=== PATIENT | female | born 1965 | race Caucasian/White ===

== ENCOUNTER 2016-10-18 14:35 | Observation (INO) | payer MEDICAID ==
[2016-10-18] MEDS ORDERED: Sodium Chloride 0.9% 2.5 ML Syringe FLUSH PRN ×2 (14:47)
[2016-10-18] MEDS ORDERED: Aspirin 81 MG Tab.Chew PO ONE (14:47)
[2016-10-18] MEDS ORDERED: Nitroglycerin 0.4 MG Tab.SL SL ONE (14:47)
[2016-10-18] MEDS ORDERED: Sodium Chloride 0.9% 10 ML Syringe FLUSH PRN (14:47)
--- NOTE | 2016-10-18 14:53 | EDM.PDOC ---
ED HPI GENERAL MEDICAL PROBLEM - General Stated Complaint: CHEST PAIN Time Seen by Provider: 10/18/16 14:35 - History of Present Illness INITIAL COMMENTS - FREE TEXT/NARRATIVE: HISTORY AND PHYSICAL: History of present illness: The patient is a 51-year-old female with a history of hypertension who presents today with gradual onset of midsternal and left chest pressure that had worsened and she came for evaluation. The patient states that the discomfort started about 11 AM and it is gradually worsened in intensity and then lessened in intensity. At its highest it was an 8/10 and currently it is a 6/10. The patient states that she had a normal morning and was doing normal activities when the discomfort started and she says that the discomfort is to the left of the mid chest and does not radiate and is associated with some nausea and shortness of breath but not diaphoresis. The patient denies any recent upper respiratory symptoms fevers or chills and has had no trauma. She currently denies any abdominal pain nausea back pain or extremity complaints. 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 The patient says that she took her normal blood pressure medications this morning and when the discomfort started she thought her blood pressure was elevated so she took one extra dose. The patient states that she smokes cigarettes and only occasionally drinks and has no history of drug use. The patient says that both her father and her half-brother had heart attacks and heart disease in the low 50s. She has never had any cardiac or pulmonary problems. She does have a history of a gastric bypass. The patient did not take any baby aspirin prying to coming here. Patient states that the only prior time she has ever had something like this was years ago when she had heat exhaustion. The patient says that she has just recently relocated here and does not have a provider. Review of systems: As per history of present illness and below otherwise all systems reviewed and negative. Past medical history: As per history of present illness and as reviewed below otherwise noncontributory. Surgical history: As per history of present illness and as reviewed below otherwise noncontributory. Social history: No reported history of drug or alcohol abuse. Family history: As per history of present illness and as reviewed below otherwise noncontributory. Physical exam: Gen.: Well-developed well-nourished female who is nontoxic and speaking clearly in the ED. Vital signs of a note by me. HEENT: Atraumatic, normocephalic, pupils reactive, negative for conjunctival pallor or scleral icterus, mucous membranes moist, throat clear, neck supple, nontender, trachea midline. Lungs: Clear to auscultation, breath sounds equal bilaterally, chest nontender. Heart: S1S2, regular, negative for clicks, rubs, or JVD. Abdomen: Soft, nondistended, nontender. Negative for masses or hepatosplenomegaly. Negative for costovertebral tenderness. Pelvis: Stable nontender. Genitourinary: Deferred. Rectal: Deferred. Extremities: Atraumatic, negative for cords or calf pain. Neurovascular unremarkable. No pedal edema or leg asymmetry Neuro: Awake, alert, oriented. Cranial nerves II through XII unremarkable. Cerebellum unremarkable. Motor and sensory unremarkable throughout. Exam nonfocal. Diagnostics: EKG CBC CMP troponin INR chest x-ray d-dimer Therapeutics: IV O2 monitor aspirin sublingual nitroglycerin and Nitropaste 1545: Dr. Arora was in the ER seen of the patient and also saw this patient. We'll plan on observation admission if the CTA of the chest is negative. After 3 separate little nitroglycerin the patient's pain is a 1-2. [address] Nitropaste. Patient is agreeable to this observation admission Impression: Chest pain rule out ACS Definitive disposition and diagnosis as appropriate pending reevaluation and review of above. chest Pain Score (Numeric/FACES): 6 - Related Data Allergies Allergy/AdvReac Type Severity Reaction Status Date / Time codeine Allergy Hallucinati Verified 10/18/16 14:52 ons lamotrigine [From Lamictal] Allergy Hives Verified 10/18/16 14:52 propofol Allergy Vomiting Verified 10/18/16 14:52 Home Meds: Home Meds FLUoxetine [PROzac] 40 mg PO BEDTIME 10/18/16 [History] Gabapentin [Neurontin] 100 mg PO BEDTIME 10/18/16 [History] Iron 0 mg PO DAILY 10/18/16 [History] Losartan [Cozaar] 50 mg PO DAILY 10/18/16 [History] Meloxicam 15 mg PO DAILY 10/18/16 [History] Metoprolol Succinate [Toprol XL] 100 mg PO DAILY 10/18/16 [History] Omeprazole 40 mg PO DAILY 10/18/16 [History] QUEtiapine Fumarate [Seroquel] 200 mg PO BEDTIME 10/18/16 [History] ED ROS GENERAL - Review of Systems Review Of Systems: ROS reveals no pertinent complaints other than HPI. ED EXAM, GENERAL - Physical Exam Exam: See Below (see dictation) Course - Vital Signs Last Recorded V/S: Last Vital Signs Temp 36.3 C 10/18/16 14:53 Pulse 77 10/18/16 14:53 Resp 11 L 10/18/16 17:00 BP 158/86 H 10/18/16 17:00 Pulse Ox 97 10/18/16 17:00 - Orders/Labs/Meds Orders: Active Orders 24 hr Category Date Time Status Patient Status [ADT] Routine ADT 10/18/16 16:34 Active Cardiac Monitoring [RC] . DIRECTED Care 10/18/16 14:47 Active EKG Documentation Completion [RC] STAT Care 10/18/16 14:48 Active Oxygen Therapy [RC] ASDIRECTED Care 10/18/16 14:47 Active Oxygen Therapy [RC] PRN Care 10/18/16 16:34 Active Pulse Oximetry [RC] ASDIRECTED Care 10/18/16 14:47 Active Up ad Quiana [RC] ASDIRECTED Care 10/18/16 16:34 Active VTE/DVT Education [RC] PER UNIT ROUTINE Care 10/18/16 16:34 Active Vital Signs [RC] Q4H Care 10/18/16 16:34 Active Regular Diet [DIET] Diet 10/18/16 Dinner Active Ang Chest [CT] Stat Exams 10/18/16 15:33 Taken MAGNESIUM [CHEM] AM Lab 10/19/16 05:11 Ordered TROPONIN I [CHEM] Q6H Lab 10/18/16 21:00 Ordered TROPONIN I [CHEM] Q6H Lab 10/19/16 03:00 Ordered TROPONIN I [CHEM] Q6H Lab 10/19/16 09:00 Ordered Acetaminophen [Tylenol] Med 10/18/16 16:34 Active 650 mg PO Q4H PRN Aspirin Med 10/19/16 09:00 Active 81 mg PO DAILY Enoxaparin [Lovenox] Med 10/19/16 18:00 Active 40 mg SUBCUT DAILY FLUoxetine [PROzac] Med 10/18/16 21:00 Active 40 mg PO BEDTIME Gabapentin [Neurontin] Med 10/18/16 21:00 Active 100 mg PO BEDTIME Losartan [Cozaar] Med 10/19/16 09:00 Active 50 mg PO DAILY Metoprolol Succinate [Toprol XL] Med 10/19/16 09:00 Active 100 mg PO DAILY Omeprazole Med 10/19/16 09:00 Active 40 mg PO DAILY QUEtiapine [SEROquel] Med 10/18/16 21:00 Active 200 mg PO BEDTIME Sodium Chloride 0.9% [Saline Flush] Med 10/18/16 14:47 Active 10 ml FLUSH ASDIRECTED PRN Sodium Chloride 0.9% [Saline Flush] Med 10/18/16 14:47 Active 2.5 ml FLUSH ASDIRECTED PRN Sodium Chloride 0.9% [Saline Flush] Med 10/18/16 14:47 Active 2.5 ml FLUSH ASDIRECTED PRN Temazepam [Restoril] Med 10/18/16 16:34 Active 15 mg PO BEDTIME PRN Saline Lock Insert [OM.PC] Stat Oth 10/18/16 14:47 Ordered Resuscitation Status Routine Resus Stat 10/18/16 16:34 Ordered Medication Orders Acetaminophen (Tylenol) 650 mg PO Q4H PRN PRN Reason: Pain (Mild 1-3)/fever Aspirin (Aspirin) 81 mg PO DAILY [facility] Enoxaparin Sodium (Lovenox) 40 mg SUBCUT DAILY [facility] Fluoxetine HCl (Prozac) 40 mg PO BEDTIME ELI Gabapentin (Neurontin) 100 mg PO BEDTIME ELI Losartan Potassium (Cozaar) 50 mg PO DAILY ELI Metoprolol Succinate (Toprol Xl) 100 mg PO DAILY ELI Omeprazole (Omeprazole) 40 mg PO DAILY ELI Quetiapine Fumarate (Seroquel) 200 mg PO BEDTIME ELI Sodium Chloride (Saline Flush) 2.5 ml FLUSH ASDIRECTED PRN PRN Reason: Keep Vein Open Sodium Chloride (Saline Flush) 10 ml FLUSH ASDIRECTED PRN PRN Reason: Keep Vein Open Sodium Chloride (Saline Flush) 2.5 ml FLUSH ASDIRECTED PRN PRN Reason: Keep Vein Open Temazepam (Restoril) 15 mg PO BEDTIME PRN PRN Reason: Sleep Labs: Laboratory Tests 10/18/16 10/18/16 10/18/16 Range/Units 14:38 14:38 14:38 WBC 10.55 (4.0-11.0) K/uL RBC 4.54 (4.30-5.90) M/uL Hgb 14.4 (12.0-16.0) g/dL Hct 43.8 (36.0-46.0) % MCV 96.5 (80.0-98.0) fL MCH 31.7 (27.0-32.0) pg MCHC 32.9 (31.0-37.0) g/dL RDW Std Deviation 46.9 (28.0-62.0) fl RDW Coeff of Stephani 13 (11.0-15.0) % Plt Count 296 (150-400) K/uL MPV 9.50 (7.40-12.00) fL Neut % (Auto) 61.5 (48.0-80.0) % Lymph % (Auto) 27.6 (16.0-40.0) % [place] % (Auto) 9.2 (0.0-15.0) % Eos % (Auto) 0.9 (0.0-7.0) % Baso % (Auto) 0.8 (0.0-1.5) % Neut # (Auto) 6.5 H (1.4-5.7) K/uL Lymph # (Auto) 2.9 H (0.6-2.4) K/uL [place] # (Auto) 1.0 H (0.0-0.8) K/uL Eos # (Auto) 0.1 (0.0-0.7) K/uL Baso # (Auto) 0.1 (0.0-0.1) K/uL Nucleated RBC % 0.0 /100WBC Nucleated RBCs # 0 K/uL INR 0.91 (0.86-1.11) D-Dimer, Quantitative 0.79 H (0.0-0.52) mg/LFEU Sodium 135 L (136-146) mmol/L Potassium 4.6 (3.5-5.1) mmol/L Chloride 101 (98-110) mmol/L Carbon Dioxide 23 (21-31) mmol/L BUN 16 (6.0-23.0) mg/dL Creatinine 1.0 (0.6-1.5) mg/dL Est Cr Clr Drug Dosing TNP Estimated GFR (MDRD) 58.0 ml/min Glucose 95 (60-110) mg/dL Calcium 8.9 (8.8-10.8) mg/dL Total Bilirubin 0.6 (0.1-1.5) mg/dL AST 57 H (5-40) IU/L ALT 46 (8-54) IU/L Alkaline Phosphatase 133 (40-150) Troponin I (0.0-0.29) NG/ML Total Protein 7.8 (6.0-8.0) g/dL Albumin 4.3 (3.5-5.0) g/dL Globulin 3.5 (2.0-3.5) g/dL Albumin/Globulin Ratio 1.2 L (1.3-2.8) 10/18/16 Range/Units 14:38 WBC (4.0-11.0) K/uL RBC (4.30-5.90) M/uL Hgb (12.0-16.0) g/dL Hct (36.0-46.0) % MCV (80.0-98.0) fL MCH (27.0-32.0) pg MCHC (31.0-37.0) g/dL RDW Std Deviation (28.0-62.0) fl RDW Coeff of Stephani (11.0-15.0) % Plt Count (150-400) K/uL MPV (7.40-12.00) fL Neut % (Auto) (48.0-80.0) % Lymph % (Auto) (16.0-40.0) % [place] % (Auto) (0.0-15.0) % Eos % (Auto) (0.0-7.0) % Baso % (Auto) (0.0-1.5) % Neut # (Auto) (1.4-5.7) K/uL Lymph # (Auto) (0.6-2.4) K/uL [place] # (Auto) (0.0-0.8) K/uL Eos # (Auto) (0.0-0.7) K/uL Baso # (Auto) (0.0-0.1) K/uL Nucleated RBC % /100WBC Nucleated RBCs # K/uL INR (0.86-1.11) D-Dimer, Quantitative (0.0-0.52) mg/LFEU Sodium (136-146) mmol/L Potassium (3.5-5.1) mmol/L Chloride (98-110) mmol/L Carbon Dioxide (21-31) mmol/L BUN (6.0-23.0) mg/dL Creatinine (0.6-1.5) mg/dL Est Cr Clr Drug Dosing Estimated GFR (MDRD) ml/min Glucose (60-110) mg/dL Calcium (8.8-10.8) mg/dL Total Bilirubin (0.1-1.5) mg/dL AST (5-40) IU/L ALT (8-54) IU/L Alkaline Phosphatase (40-150) Troponin I < 0.10 (0.0-0.29) NG/ML Total Protein (6.0-8.0) g/dL Albumin (3.5-5.0) g/dL Globulin (2.0-3.5) g/dL Albumin/Globulin Ratio (1.3-2.8) Meds: Medications Generic Name Dose Route Start Last Admin Trade Name Freq PRN Reason Stop Dose Admin Acetaminophen 650 mg 10/18/16 16:34 Tylenol PO Q4H PRN Pain (Mild 1-3)/fever Aspirin 81 mg 10/19/16 09:00 Aspirin PO DAILY [facility] Enoxaparin Sodium 40 mg 10/19/16 18:00 Lovenox SUBCUT DAILY [facility] Fluoxetine HCl 40 mg 10/18/16 21:00 Prozac PO BEDTIME ELI Gabapentin 100 mg 10/18/16 21:00 Neurontin PO BEDTIME ELI Losartan Potassium 50 mg 10/19/16 09:00 Cozaar PO DAILY ELI Metoprolol Succinate 100 mg 10/19/16 09:00 Toprol Xl PO DAILY ELI Omeprazole 40 mg 10/19/16 09:00 Omeprazole PO DAILY ELI Quetiapine Fumarate 200 mg 10/18/16 21:00 Seroquel PO BEDTIME ELI Sodium Chloride 2.5 ml 10/18/16 14:47 Saline Flush FLUSH ASDIRECTED PRN Keep Vein Open Sodium Chloride 10 ml 10/18/16 14:47 Saline Flush FLUSH ASDIRECTED PRN Keep Vein Open Sodium Chloride 2.5 ml 10/18/16 14:47 Saline Flush FLUSH ASDIRECTED PRN Keep Vein Open Temazepam 15 mg 10/18/16 16:34 Restoril PO BEDTIME PRN Sleep Discontinued Medications Generic Name Dose Route Start Last Admin Trade Name Freq PRN Reason Stop Dose Admin Aspirin 324 mg 10/18/16 14:47 10/18/16 15:05 Aspirin PO 10/18/16 14:48 324 mg ONETIME ONE Administration Aspirin Confirm 10/18/16 15:09 10/18/16 15:21 Aspirin Administered 10/18/16 15:10 Not Given Dose 81 mg .ROUTE .STK-MED ONE Iopamidol 50 ml 10/18/16 16:35 10/18/16 16:36 Isovue Multipack-370 (76%) IVPUSH 10/18/16 16:36 50 ml ONETIME STA Administration Nitroglycerin 0.4 mg 10/18/16 14:47 10/18/16 15:21 Nitrostat SL 10/18/16 14:48 0.4 mg ONETIME ONE Administration Nitroglycerin 0.4 mg 10/18/16 15:45 10/18/16 16:51 Nitrostat SL 10/18/16 15:56 Not Given Q5M ELI Nitroglycerin 1 gm 10/18/16 16:04 10/18/16 16:57 Nitro-Bid 2% TOP 10/18/16 16:05 Not Given ONETIME ONE Nitroglycerin 0.5 gm 10/18/16 16:56 10/18/16 16:58 Nitro-Bid 2% TOP 10/18/16 16:57 0.5 gm ONETIME ONE Administration Departure - Departure Time of Disposition: 17:14 Disposition: Refer to Observation Condition: Good Clinical Impression: Acute coronary syndrome - Discharge Information - My Orders Last 24 Hours: My Active Orders 10/18/16 14:47 Cardiac Monitoring [RC] . DIRECTED Oxygen Therapy [RC] ASDIRECTED Pulse Oximetry [RC] ASDIRECTED Sodium Chloride 0.9% [Saline Flush] 10 ml FLUSH ASDIRECTED PRN Sodium Chloride 0.9% [Saline Flush] 2.5 ml FLUSH ASDIRECTED PRN Sodium Chloride 0.9% [Saline Flush] 2.5 ml FLUSH ASDIRECTED PRN Saline Lock Insert [OM.PC] Stat 10/18/16 14:48 EKG Documentation Completion [RC] STAT 10/18/16 15:33 Ang Chest [CT] Stat - Assessment/Plan Last 24 Hours: My Active Orders 10/18/16 14:47 Cardiac Monitoring [RC] . DIRECTED Oxygen Therapy [RC] ASDIRECTED Pulse Oximetry [RC] ASDIRECTED Sodium Chloride 0.9% [Saline Flush] 10 ml FLUSH ASDIRECTED PRN Sodium Chloride 0.9% [Saline Flush] 2.5 ml FLUSH ASDIRECTED PRN Sodium Chloride 0.9% [Saline Flush] 2.5 ml FLUSH ASDIRECTED PRN Saline Lock Insert [OM.PC] Stat 10/18/16 14:48 EKG Documentation Completion [RC] STAT 10/18/16 15:33 Ang Chest [CT] Stat
[2016-10-18] MEDS ORDERED: Aspirin 81 MG Tab.Chew ONE (15:09)
[2016-10-18 15:23] LABS: CHLORIDE,CL 101 mmol/L (98-110); SODIUM,NA 135 mmol/L (136-146)
[2016-10-18] MEDS: Nitroglycerin 0.4 MG Tab.SL SL SCH ×3 (15:33→16:51)
[2016-10-18] MEDS ORDERED: Nitroglycerin 2% Oint 1 GM UD Packet TOP ONE ×2 (16:04→16:56)
--- NOTE | 2016-10-18 16:33 | PCM.HP ---
H&P History of Present Illness - General Date of Service: 10/18/16 Source of Information: Patient, Provider - History of Present Illness Initial Comments - Free Text/Narative: she presents with left precordial pain. She was seen in the ED. EKG and troponin were normal. Her pain is improved with nitroglycerin. She smokes and has a family history of premature CAD with her brother suffering an OR. chest Pain Score (Numeric/FACES): 6 - Related Data Allergies/Adverse Reactions: Allergies Allergy/AdvReac Type Severity Reaction Status Date / Time codeine Allergy Hallucinati Verified 10/18/16 14:52 ons lamotrigine [From Lamictal] Allergy Hives Verified 10/18/16 14:52 propofol Allergy Vomiting Verified 10/18/16 14:52 Home Medications: Home Meds FLUoxetine [PROzac] 40 mg PO BEDTIME 10/18/16 [History] Gabapentin [Neurontin] 100 mg PO BEDTIME 10/18/16 [History] Iron 0 mg PO DAILY 10/18/16 [History] Losartan [Cozaar] 50 mg PO DAILY 10/18/16 [History] Meloxicam 15 mg PO DAILY 10/18/16 [History] Metoprolol Succinate [Toprol XL] 100 mg PO DAILY 10/18/16 [History] Omeprazole 40 mg PO DAILY 10/18/16 [History] QUEtiapine Fumarate [Seroquel] 200 mg PO BEDTIME 10/18/16 [History] Past Medical History - Past Health History Medical/Surgical History: Denies Medical/Surgical History Cardiovascular History: Reports: Hypertension. Denies: CAD, Heart Failure, Heart Murmur Respiratory History: Reports: Pneumonia, Recurrent. 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: Musculoskeletal History: Reports: Arthritis Neurological History: Denies: Alzheimers Disease, CVA, Seizure Psychiatric History: Reports: Bipolar, Depression Endocrine/Metabolic History: Denies: [place]'s Disease, [place]'s Disease, Diabetes, Type II Hematologic History: Denies: Anticoagulation Therapy Immunologic History: Denies: AIDS, HIV, Immunosuppression, Solid Organ Transplant Oncologic (Cancer) History: Reports: None - Past Surgical History GI Surgical History: Reports: Other (See Below) Other GI Surgeries/Procedures: gastric bypass Female Surgical History: Reports: Section Other Female Surgeries/Procedures: breast reduction Social & Family History - Family History Family Medical History: Noncontributory Neurological: Reports: CVA Other Neurological Family History: father- - Tobacco Use Smoking Status *Q: Current Every Day Smoker Years of Tobacco use: 40 Packs/Tins Daily: 1 - Caffeine Use Caffeine Use: Reports: Coffee Caffeine Use Comment: 1 cup daily - Alcohol Use Alcohol Use History: Yes Days Per Week of Alcohol Use: 4 Number of Drinks Per Day: 3 (drinks red wine) Total Drinks Per Week: 12 - Recreational Drug Use Recreational Drug Use: No H&P Review of Systems - Review of Systems: Review Of Systems: See Below General: Denies: Fever, Chills Pulmonary: Denies: Shortness of Breath, Cough, Sputum, Hemoptysis Cardiovascular: Reports: Chest Pain Gastrointestinal: Denies: Abdominal Pain, Anorexia, Black Stool, Difficulty Swallowing, Hematemesis, Hematochezia, Nausea Genitourinary: Denies: Dysuria, Frequency, Hematuria Skin: Denies: Cyanosis Psychiatric: Denies: Confusion Exam - Exam Exam: See Below - Vital Signs Vital Signs: Last Vital Signs Temp 97.4 F 10/18/16 14:53 Pulse 77 10/18/16 14:53 Resp 13 10/18/16 15:25 BP 142/90 H 10/18/16 15:40 Pulse Ox 94 L 10/18/16 15:25 Weight: 86.3 kg - Exam General: Alert, Oriented, Cooperative HEENT: Conjunctiva Clear, EOMI Neck: Supple, Trachea Midline Lungs: Clear to Auscultation, Normal Respiratory Effort Cardiovascular: Regular Rate, Regular Rhythm Abdomen: Soft. No: Distention, Tenderness (Female) Exam: Deferred Rectal (Female) Exam: Deferred Extremities: No: Edema Neurological: Cranial Nerves Intact Neuro Extensive - Mental Status: Alert, Oriented x3, Normal Mood/Affect, Normal Cognition Neuro Extensive - Motor, Sensory, Reflexes: No: Facial palsy (L), Facial Palsy ( R), Hemeplagia (R), Hemeplagia (L) Psychiatric: Alert. No: Agitated - Patient Data Lab Results Last 24 hrs: Laboratory Results - last 24 hr 06/23/17 06/23/17 06/23/17 Range/Units 14:38 14:38 14:38 WBC 10.55 (4.0-11.0) K/uL RBC 4.54 (4.30-5.90) M/uL Hgb 14.4 (12.0-16.0) g/dL Hct 43.8 (36.0-46.0) % MCV 96.5 (80.0-98.0) fL MCH 31.7 (27.0-32.0) pg MCHC 32.9 (31.0-37.0) g/dL RDW Std Deviation 46.9 (28.0-62.0) fl RDW Coeff of Stephani 13 (11.0-15.0) % Plt Count 296 (150-400) K/uL MPV 9.50 (7.40-12.00) fL Neut % (Auto) 61.5 (48.0-80.0) % Lymph % (Auto) 27.6 (16.0-40.0) % [place] % (Auto) 9.2 (0.0-15.0) % Eos % (Auto) 0.9 (0.0-7.0) % Baso % (Auto) 0.8 (0.0-1.5) % Neut # (Auto) 6.5 H (1.4-5.7) K/uL Lymph # (Auto) 2.9 H (0.6-2.4) K/uL [place] # (Auto) 1.0 H (0.0-0.8) K/uL Eos # (Auto) 0.1 (0.0-0.7) K/uL Baso # (Auto) 0.1 (0.0-0.1) K/uL Nucleated RBC % 0.0 /100WBC Nucleated RBCs # 0 K/uL INR 0.91 (0.86-1.11) D-Dimer, Quantitative 0.79 H (0.0-0.52) mg/LFEU Sodium 135 L (136-146) mmol/L Potassium 4.6 (3.5-5.1) mmol/L Chloride 101 (98-110) mmol/L Carbon Dioxide 23 (21-31) mmol/L BUN 16 (6.0-23.0) mg/dL Creatinine 1.0 (0.6-1.5) mg/dL Est Cr Clr Drug Dosing TNP Estimated GFR (MDRD) 58.0 ml/min Glucose 95 (60-110) mg/dL Calcium 8.9 (8.8-10.8) mg/dL Total Bilirubin 0.6 (0.1-1.5) mg/dL AST 57 H (5-40) IU/L ALT 46 (8-54) IU/L Alkaline Phosphatase 133 (40-150) Troponin I (0.0-0.29) NG/ML Total Protein 7.8 (6.0-8.0) g/dL Albumin 4.3 (3.5-5.0) g/dL Globulin 3.5 (2.0-3.5) g/dL Albumin/Globulin Ratio 1.2 L (1.3-2.8) 10/18/16 Range/Units 14:38 WBC (4.0-11.0) K/uL RBC (4.30-5.90) M/uL Hgb (12.0-16.0) g/dL Hct (36.0-46.0) % MCV (80.0-98.0) fL MCH (27.0-32.0) pg MCHC (31.0-37.0) g/dL RDW Std Deviation (28.0-62.0) fl RDW Coeff of Stephani (11.0-15.0) % Plt Count (150-400) K/uL MPV (7.40-12.00) fL Neut % (Auto) (48.0-80.0) % Lymph % (Auto) (16.0-40.0) % [place] % (Auto) (0.0-15.0) % Eos % (Auto) (0.0-7.0) % Baso % (Auto) (0.0-1.5) % Neut # (Auto) (1.4-5.7) K/uL Lymph # (Auto) (0.6-2.4) K/uL [place] # (Auto) (0.0-0.8) K/uL Eos # (Auto) (0.0-0.7) K/uL Baso # (Auto) (0.0-0.1) K/uL Nucleated RBC % /100WBC Nucleated RBCs # K/uL INR (0.86-1.11) D-Dimer, Quantitative (0.0-0.52) mg/LFEU Sodium (136-146) mmol/L Potassium (3.5-5.1) mmol/L Chloride (98-110) mmol/L Carbon Dioxide (21-31) mmol/L BUN (6.0-23.0) mg/dL Creatinine (0.6-1.5) mg/dL Est Cr Clr Drug Dosing Estimated GFR (MDRD) ml/min Glucose (60-110) mg/dL Calcium (8.8-10.8) mg/dL Total Bilirubin (0.1-1.5) mg/dL AST (5-40) IU/L ALT (8-54) IU/L Alkaline Phosphatase (40-150) Troponin I < 0.10 (0.0-0.29) NG/ML Total Protein (6.0-8.0) g/dL Albumin (3.5-5.0) g/dL Globulin (2.0-3.5) g/dL Albumin/Globulin Ratio (1.3-2.8) Result Diagrams: 10/18/16 14:38 10/18/16 14:38 John Results Last 24 hrs: EKG: NSR *Q Meaningful Use (ADM) - VTE *Q VTE Criteria *Q: - Stroke *Q Stroke Criteria *Q: - AMI *Q AMI Criteria *Q: Problem List Initiated/Reviewed/Updated: Yes Orders Last 24hrs: Active Orders 24 hr Category Date Time Status Cardiac Monitoring [RC] . DIRECTED Care 10/18/16 14:47 Active EKG Documentation Completion [RC] STAT Care 10/18/16 14:48 Active Oxygen Therapy [RC] ASDIRECTED Care 10/18/16 14:47 Active Pulse Oximetry [RC] ASDIRECTED Care 10/18/16 14:47 Active Ang Chest [CT] Stat Exams 10/18/16 15:33 Ordered Chest 1V Frontal [CR] Stat Exams 10/18/16 14:47 Taken Sodium Chloride 0.9% [Saline Flush] Med 10/18/16 14:47 Active 10 ml FLUSH ASDIRECTED PRN Sodium Chloride 0.9% [Saline Flush] Med 10/18/16 14:47 Active 2.5 ml FLUSH ASDIRECTED PRN Sodium Chloride 0.9% [Saline Flush] Med 10/18/16 14:47 Active 2.5 ml FLUSH ASDIRECTED PRN Saline Lock Insert [OM.PC] Stat Oth 10/18/16 14:47 Ordered Medication Orders Sodium Chloride (Saline Flush) 2.5 ml FLUSH ASDIRECTED PRN PRN Reason: Keep Vein Open Sodium Chloride (Saline Flush) 10 ml FLUSH ASDIRECTED PRN PRN Reason: Keep Vein Open Sodium Chloride (Saline Flush) 2.5 ml FLUSH ASDIRECTED PRN PRN Reason: Keep Vein Open Assessment/Plan Comment:: observation see orders CTA chest pending
[2016-10-18] MEDS ORDERED: Temazepam 15 MG Cap PO PRN (16:34)
[2016-10-18] MEDS ORDERED: Iopamidol 755 MG/ML 500 ML Multipack Bottle IVPUSH STA (16:35)
--- NOTE | 2016-10-18 17:11 | CR ---
EXAM DATE: 10/18/16 PATIENT'S AGE: 51 Patient: FILOMENA VENCES Facility: [place], [place] Site . Site : [id number] Study: XRay Chest [id number] 3:07:49 PM Ordering Physician: Melisa Clark Final Report: HISTORY: Chest pain. FINDINGS: AP portable chest radiograph demonstrates EKG leads overlie the thorax. The cardiac silhouette is normal size. Pulmonary vasculature is free of cephalization. There is some linear density in the left mid lung. No consolidation or pleural effusion is seen. IMPRESSION: 1. Linear atelectasis or scarring in the left mid lung. 2. Otherwise, no acute cardiopulmonary disease. Dictated by Noni Monte MD @ 10/18/2016 3:11:17 PM Dictated by: Noni Monte MD @ 10/18/2016 15:11:24 (Electronic Signature) Report Signed by Proxy. KEITH
[2016-10-18] MEDS: Acetaminophen 325 MG Tab PO PRN (20:04)
[2016-10-18] MEDS: FLUoxetine 20 MG Cap PO SCH ×2 (20:05→20:09)
[2016-10-18] MEDS ORDERED: QUEtiapine 100 MG Tab PO SCH (21:00)
[2016-10-18] MEDS ORDERED: Gabapentin 100 MG Cap PO SCH (21:00)
[2016-10-18] MEDS: Nitroglycerin 2% Oint 1 GM UD Packet TOP SCH (23:09)
[2016-10-19] MEDS: Acetaminophen 325 MG Tab PO PRN ×2 (02:33→11:58)
[2016-10-19] MEDS: Nitroglycerin 2% Oint 1 GM UD Packet TOP SCH ×2 (05:01→10:38)
[2016-10-19] MEDS ORDERED: Metoprolol Succinate 100 MG Tab.ER PO SCH (09:00)
[2016-10-19] MEDS ORDERED: FLUoxetine 20 MG Cap PO SCH (09:00)
[2016-10-19] MEDS ORDERED: Aspirin 81 MG Tab.Chew PO SCH (09:00)
[2016-10-19] MEDS ORDERED: Losartan 50 MG Tab PO SCH (09:00)
[2016-10-19] MEDS ORDERED: Omeprazole 20 MG Cap.CR PO SCH (09:00)
[2016-10-19 16:00] VITALS: BP 146/97
--- NOTE | 2016-10-19 16:26 | PCM.DCSUM1 ---
Discharge Summary - Hospital Course Brief History: she was admitted with left precordial chest pain - Discharge Data Discharge Date: 10/19/16 Discharge Disposition: Home, Self-Care 01 Condition: Good - Patient Summary/Data Hospital Course: EKG showed no evidence of ischemia. Pain improved with nitroglycerin . serial troponins are negative. She is pain free at discharge. Arrangements are being made for outpatient stress test this coming week. She is to follow up promptly if symptoms return she is advised to take aspirin 81 mg daily no strenuous activity until after stress test is done she is prescribed anusol suppositories at discharge for reported hemorrhoids. - Discharge Plan Prescriptions/Med Rec: Aspirin 81 mg PO DAILY #100 tab.chew Hydrocortisone [Anusol-HC] 2 gm RC QID PRN #30 cream..g. PRN Reason: Other Nitroglycerin [Nitrostat] 0.4 mg SL Q5M #10 tab.sl Home Medications: Home Meds FLUoxetine [PROzac] 40 mg PO BEDTIME 10/18/16 [History] Gabapentin [Neurontin] 100 mg PO BEDTIME 10/18/16 [History] Iron,Carbonyl/Ascorbic Acid [Vitron-C Tablet] 1 each PO DAILY 10/18/16 [History] Losartan [Cozaar] 50 mg PO DAILY 10/18/16 [History] Meloxicam 15 mg PO DAILY 10/18/16 [History] Metoprolol Succinate [Toprol XL] 100 mg PO DAILY 10/18/16 [History] Omeprazole 40 mg PO DAILY 10/18/16 [History] QUEtiapine Fumarate [Seroquel] 200 mg PO BEDTIME 10/18/16 [History] Aspirin 81 mg PO DAILY #100 tab.chew 10/19/16 [Rx] Hydrocortisone [Anusol-HC] 2 gm RC QID PRN #30 cream..g. 10/19/16 [Rx] Nitroglycerin [Nitrostat] 0.4 mg SL Q5M #10 tab.sl 10/19/16 [Rx] Patient Handouts: Nonspecific Chest Pain, [id number], Nitroglycerin sublingual tablets - Patient Data Vitals - Most Recent: Last Vital Signs Temp 97 F 10/19/16 15:59 Pulse 69 10/19/16 15:59 Resp 18 10/19/16 15:59 BP 146/97 H 10/19/16 15:59 Pulse Ox 98 10/19/16 15:59 Weight - Most Recent: 87.5 kg I&O - Last 24 hours: Intake & Output 10/19/16 10/19/16 10/19/16 06:59 14:59 22:59 Intake Total 1280 350 Output Total 700 800 Balance 580 -450 Lab Results - Last 24 hrs: Laboratory Results - last 24 hr 10/18/16 10/19/16 10/19/16 Range/Units 21:06 03:05 03:05 Magnesium 1.6 (1.5-2.3) mEq/L Troponin I < 0.10 < 0.10 (0.0-0.29) NG/ML 10/19/16 Range/Units 09:00 Magnesium (1.5-2.3) mEq/L Troponin I < 0.10 (0.0-0.29) NG/ML Med Orders - Current: Current Medications Acetaminophen (Tylenol) 650 mg PO Q4H PRN PRN Reason: Pain (Mild 1-3)/fever Last Admin: 10/19/16 11:58 Dose: 650 mg Aspirin (Aspirin) 81 mg PO DAILY [facility] Last Admin: 10/19/16 08:08 Dose: 81 mg Enoxaparin Sodium (Lovenox) 40 mg SUBCUT DAILY [facility] Fluoxetine HCl (Prozac) 40 mg PO DAILY [facility] Last Admin: 10/19/16 08:09 Dose: 40 mg Gabapentin (Neurontin) 100 mg PO BEDTIME [facility] Last Admin: 10/18/16 20:05 Dose: 100 mg Losartan Potassium (Cozaar) 50 mg PO DAILY [facility] Last Admin: 10/19/16 08:08 Dose: 50 mg Metoprolol Succinate (Toprol Xl) 100 mg PO DAILY [facility] Last Admin: 10/19/16 08:08 Dose: 100 mg Omeprazole (Omeprazole) 40 mg PO DAILY [facility] Last Admin: 10/19/16 08:08 Dose: 40 mg Quetiapine Fumarate (Seroquel) 200 mg PO BEDTIME [facility] Last Admin: 10/18/16 20:04 Dose: 200 mg Sodium Chloride (Saline Flush) 2.5 ml FLUSH ASDIRECTED PRN PRN Reason: Keep Vein Open Sodium Chloride (Saline Flush) 10 ml FLUSH ASDIRECTED PRN PRN Reason: Keep Vein Open Sodium Chloride (Saline Flush) 2.5 ml FLUSH ASDIRECTED PRN PRN Reason: Keep Vein Open Temazepam (Restoril) 15 mg PO BEDTIME PRN PRN Reason: Sleep Discontinued Medications Aspirin (Aspirin) 324 mg PO ONETIME ONE Stop: 10/18/16 14:48 Last Admin: 10/18/16 15:05 Dose: 324 mg Aspirin (Aspirin) Confirm Administered Dose 81 mg .ROUTE .STK-MED ONE Stop: 10/18/16 15:10 Last Admin: 10/18/16 15:21 Dose: Not Given Fluoxetine HCl (Prozac) 40 mg PO BEDTIME ELI Last Admin: 10/18/16 20:09 Dose: Not Given Iopamidol (Isovue Multipack-370 (76%)) 50 ml IVPUSH ONETIME STA Stop: 10/18/16 16:36 Last Admin: 10/18/16 16:36 Dose: 50 ml Nitroglycerin (Nitrostat) 0.4 mg SL ONETIME ONE Stop: 10/18/16 14:48 Last Admin: 10/18/16 15:21 Dose: 0.4 mg Nitroglycerin (Nitrostat) 0.4 mg SL Q5M ELI Stop: 10/18/16 15:56 Last Admin: 10/18/16 16:51 Dose: Not Given Nitroglycerin (Nitro-Bid 2%) 1 gm TOP ONETIME ONE Stop: 10/18/16 16:05 Last Admin: 10/18/16 16:57 Dose: Not Given Nitroglycerin (Nitro-Bid 2%) 0.5 gm TOP ONETIME ONE Stop: 10/18/16 16:57 Last Admin: 10/18/16 16:58 Dose: 0.5 gm Nitroglycerin (Nitro-Bid 2%) 1 gm TOP Q6H ELI Last Admin: 10/19/16 10:38 Dose: 1 gm *Q Meaningful Use (DIS) - VTE *Q VTE Criteria *Q: - Stroke *Q Stroke Criteria *Q: - AMI *Q AMI Criteria *Q:
[2016-10-19] MEDS ORDERED: Enoxaparin 40 MG/0.4 ML Syringe SUBCUT SCH (18:00)
--- NOTE | 2016-10-21 09:55 | CT ---
EXAM DATE: 10/18/16 PATIENT'S AGE: 51 Patient: FILOMENA VENCES Facility: [place], [place] Site . Site : [id number] Study: CT Chest Angio [id number] 4:40:22 PM Ordering Physician: Melisa Clark Final Report: HISTORY: Elevated D-dimer, left chest pain. TECHNIQUE: The chest was scanned using helical technique at 1 mm after 50 cc of Isovue- 370. Sagittal and coronal reconstructions were performed. FINDINGS: Mediastinum and hilar: Thyroid is unremarkable. No pathologic mediastinal or hilar adenopathy seen. Cardiovascular structures: The thoracic aorta is normal in caliber. The bolus to the pulmonary arteries is excellent. No pulmonary embolus is identified. Heart size is at the upper limits of normal. No pericardial effusion is seen. Lungs and pleura: There band atelectatic lung present in the anterior aspect of the right lower lobe. 11 mm pulmonary nodule is seen the right lower lobe on image [id number]. There are a few small satellite nodules measuring 4 mm or less. There is a band of atelectasis or scarring in the lingula. Chest wall: No pathologic axillary lymphadenopathy. No chest wall mass. Upper abdomen: Postoperative changes on the stomach suggesting gastric bypass. The visualized liver is size homogeneous. The spleen is normal in size. Osseous structures: There is patchy sclerosis seen lateral aspect of the left 5th rib. It is seen within the thoracic spine. IMPRESSION: 1. No pulmonary embolus is identified. 2. Thoracic aorta is free of aneurysm or dissection. 3. 11 mm pulmonary nodule in the right lower lobe with a few satellite nodules. Further evaluation with PET-CT imaging, followup exam in 3 months or tissue sampling should be considered. 4. Is a band of atelectasis or scarring seen within the right lower lobe and lingula. 5. Postoperative changes of the stomach most consistent with gastric bypass. 6. Patchy sclerosis in the lateral aspect left 5th rib. This is nonspecific in appearance. No other bony lesions are identified. Dictated by Noni Monte MD @ 10/18/2016 5:11:50 PM Dictated by: Noni Monte MD @ 10/18/2016 17:12:11 (Electronic Signature) Report Signed by Proxy. [facility] CENTERHiren
== END 2016-10-19 16:51 | disposition home or self-care (01) ==
LOC: MW.ED 14:35 → MW.ICU 17:30
PROVIDERS: ADMIT Family Medicine; ATTEND Family Medicine
DX: R07.2 Precordial pain (principal); I10 Essential (primary) hypertension; F31.9 Bipolar disorder, unspecified; F17.210 Nicotine dependence, cigarettes, uncomplicated; M19.90 Unspecified osteoarthritis, unspecified site; Z82.49 Family history of ischemic heart disease and other diseases of the circulatory system; Z87.01 Personal history of pneumonia (recurrent); Z98.84 Bariatric surgery status; Z98.890 Other specified postprocedural states; Z79.899 Other long term (current) drug therapy; Z88.5 Allergy status to narcotic agent; Z88.8 Allergy status to other drugs, medicaments and biological substances
CPT/HCPCS: 36415; 71010; 71010-26; 71275; 71275-26; 80053; 83735; 84484; 85025; 85379; 85610; 93005; 99285; 99285-25; A9270-GY; G0378; Q9967

== ENCOUNTER 2018-11-04 09:16 | Emergency (ER) | payer BC, MEDICAID ==
[2018-11-04] MEDS ORDERED: Cyclobenzaprine 10 MG Tab PO ONE (09:43)
[2018-11-04] MEDS ORDERED: Sodium Chloride 0.9% 10 ML Syringe FLUSH PRN (09:44)
[2018-11-04] MEDS ORDERED: Sodium Chloride 0.9% 2.5 ML Syringe FLUSH PRN (09:44)
[2018-11-04] MEDS ORDERED: Morphine 2 MG/ML Syringe IVPUSH ONE (09:45)
--- NOTE | 2018-11-04 09:56 | EDM.PDOC ---
<Hilda Hernandez - Last Filed: 11/04/18 11:02> ED HPI GENERAL MEDICAL PROBLEM - General Chief Complaint: Lower Extremity Injury/Pain Stated Complaint: LEFT HIP PAIN Time Seen by Provider: 11/04/18 09:56 - Related Data Allergies Allergy/AdvReac Type Severity Reaction Status Date / Time codeine Allergy Hallucinati Verified 11/04/18 09:24 ons lamotrigine [From Lamictal] Allergy Hives Verified 11/04/18 09:24 propofol Allergy Vomiting Verified 11/04/18 09:24 Home Meds: Home Meds FLUoxetine [PROzac] 40 mg PO BEDTIME 10/18/16 [History] Gabapentin [Neurontin] 600 mg PO TID 10/18/16 [History] Losartan [Cozaar] 50 mg PO BID 10/18/16 [History] Meloxicam 15 mg PO DAILY 10/18/16 [History] Metoprolol Succinate [Toprol XL] 100 mg PO DAILY 10/18/16 [History] Omeprazole 40 mg PO DAILY 10/18/16 [History] QUEtiapine Fumarate [Seroquel] 200 mg PO BEDTIME 10/18/16 [History] Aspirin 81 mg PO DAILY #100 tab.chew 10/19/16 [Rx] Nitroglycerin [Nitrostat] 0.4 mg SL Q5M #10 tab.sl 10/19/16 [Rx] Orphenadrine [Norflex] 100 mg PO BEDTIME 11/04/18 [History] Course - Vital Signs Last Recorded V/S: Last Vital Signs Temp 36.1 C 11/04/18 09:28 Pulse 81 11/04/18 09:28 Resp 20 11/04/18 09:28 BP 101/77 11/04/18 09:28 Pulse Ox 90 L 11/04/18 09:28 - Orders/Labs/Meds Orders: Active Orders 24 hr Category Date Time Status Sodium Chloride 0.9% [Saline Flush] Med 11/04/18 09:44 Active 10 ml FLUSH ASDIRECTED PRN Sodium Chloride 0.9% [Saline Flush] Med 11/04/18 09:44 Active 2.5 ml FLUSH ASDIRECTED PRN Saline Lock Insert [OM.PC] Stat Oth 11/04/18 09:44 Ordered Medication Orders Sodium Chloride (Saline Flush) 10 ml FLUSH ASDIRECTED PRN PRN Reason: Keep Vein Open Sodium Chloride (Saline Flush) 2.5 ml FLUSH ASDIRECTED PRN PRN Reason: Keep Vein Open Meds: Medications Generic Name Dose Route Start Last Admin Trade Name Freq PRN Reason Stop Dose Admin Sodium Chloride 10 ml 11/04/18 09:44 Saline Flush FLUSH ASDIRECTED PRN Keep Vein Open Sodium Chloride 2.5 ml 11/04/18 09:44 Saline Flush FLUSH ASDIRECTED PRN Keep Vein Open Discontinued Medications Generic Name Dose Route Start Last Admin Trade Name Freq PRN Reason Stop Dose Admin Cyclobenzaprine HCl 10 mg 11/04/18 09:43 11/04/18 10:36 Flexeril PO 11/04/18 09:44 Not Given ONETIME ONE Morphine Sulfate 2 mg 11/04/18 09:45 11/04/18 10:00 Morphine IVPUSH 11/04/18 09:46 2 mg ONETIME ONE Administration Ondansetron HCl Confirm 11/04/18 10:01 11/04/18 10:10 Zofran Administered 11/04/18 10:02 Not Given Dose 4 mg .ROUTE .STK-MED ONE Ondansetron HCl 4 mg 11/04/18 10:06 11/04/18 10:07 Zofran IVPUSH 11/04/18 10:07 4 mg ONETIME ONE Administration Orphenadrine Citrate 60 mg 11/04/18 09:45 Norflex IM Q12H ELI Orphenadrine Citrate 60 mg 11/04/18 09:45 11/04/18 09:49 Norflex IM 11/04/18 09:46 60 mg NOW STA Administration Departure - Departure Time of Disposition: 11:02 Disposition: Home, Self-Care 01 Condition: Good Clinical Impression: Chronic 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 This information is to outline your options for follow-up care. We provide all patients seen in our emergency department with a follow-up referral. The need for follow-up, as well as the timing and circumstances, are variable depending upon the specifics of your emergency department visit. If you don't have a primary care physician on staff, we will provide you with a referral. We always advise you to contact your personal physician following an emergency department visit to inform them of the circumstance of the visit and for follow-up with them and/or the need for any referrals to a consulting specialist. The emergency department will also refer you to a specialist when appropriate. This referral assures that you have the opportunity for follow-up care with a specialist. All of these measure are taken in an effort to provide you with optimal care, which includes your follow-up. Under all circumstances we always encourage you to contact your private physician who remains a resource for coordinating your care. When calling for follow-up care, please make the office aware that this follow-up is from your recent emergency room visit. If for any reason you are refused follow-up, please contact the [facility] at and asked to speak to the emergency department charge nurse. Prescribed Tramadol 50 mg PO TID PRN (#20) [facility] [address] [place] [address] - My Orders Last 24 Hours: My Active Orders 11/04/18 09:44 Sodium Chloride 0.9% [Saline Flush] 10 ml FLUSH ASDIRECTED PRN Sodium Chloride 0.9% [Saline Flush] 2.5 ml FLUSH ASDIRECTED PRN Saline Lock Insert [OM.PC] Stat - Assessment/Plan Last 24 Hours: My Active Orders 11/04/18 09:44 Sodium Chloride 0.9% [Saline Flush] 10 ml FLUSH ASDIRECTED PRN Sodium Chloride 0.9% [Saline Flush] 2.5 ml FLUSH ASDIRECTED PRN Saline Lock Insert [OM.PC] Stat <Anastacio Gonzales - Last Filed: 11/04/18 11:33> ED HPI GENERAL MEDICAL PROBLEM - History of Present Illness INITIAL COMMENTS - FREE TEXT/NARRATIVE: 53 y/o female with history left hip replacement about 1 year ago. Presenting today to the ER after she heard left hip pop last night. Pain was severe rated 10/10. In addition has noticed her left leg getting more swollen. No change in color or pain. Able to move her toes. Sensation intact. She was recently in the ER on 04/2018 for left hip pain. CT hip showed some loosening of left hip acetabular cup. States she has not seen provider for this since she currently does not have any health insurance and her recently left her. Denies any chest pain, dyspnea abdominal pain. No change in voiding or bowel movements. Left Hip Pain Score (Numeric/FACES): 2 Past Medical History - Past Health History Medical/Surgical History: Denies Medical/Surgical History Cardiovascular History: Reports: Hypertension Respiratory History: Reports: Pneumonia, Recurrent [employer] History: Reports: Musculoskeletal History: Reports: Arthritis Psychiatric History: Reports: Bipolar, Depression Oncologic (Cancer) History: Reports: None - Infectious Disease History Infectious Disease History: Reports: Chicken Pox - Past Surgical History GI Surgical History: Reports: Other (See Below) Other GI Surgeries/Procedures: gastric bypass Female Surgical History: Reports: Section Other Female Surgeries/Procedures: breast reduction Musculoskeletal Surgical History: Reports: Hip Replacement Other Musculoskeletal Surgeries/Procedures:: Ankle fracture Social & Family History - Family History Family Medical History: Noncontributory Neurological: Reports: CVA Other Neurological Family History: father- - Tobacco Use Smoking Status *Q: Current Every Day Smoker Years of Tobacco use: 40 Packs/Tins Daily: 0.5 - Caffeine Use Caffeine Use: Reports: None Caffeine Use Comment: 1 cup daily - Recreational Drug Use Recreational Drug Use: No Review of Systems - Review of Systems Review Of Systems: ROS reveals no pertinent complaints other than HPI. ED EXAM, GENERAL - Physical Exam Exam: See Below Respiratory/Chest: No Respiratory Distress, Lungs Clear Cardiovascular: Normal Peripheral Pulses, Regular Rate, Rhythm GI/Abdominal: Normal Bowel Sounds, Soft, Non-Tender Extremities: Other (Tender in left hip area. Sensation intact. Not able to fully meneuver left leg due to pain. Able to wiggle toes.) Course - Vital Signs Text/Narrative:: xray left hip did not show displacement of left hip prosthesis. US left leg negative for DVT.
[2018-11-04] MEDS ORDERED: Ondansetron 4 MG/2 ML SDV ONE (10:01)
[2018-11-04] MEDS ORDERED: Ondansetron 4 MG/2 ML SDV IVPUSH ONE (10:06)
--- NOTE | 2018-11-04 10:23 | CR ---
EXAMINATION: Left hip HISTORY: Dislocation COMPARISON: 05/02/2018 TECHNIQUE: 2 views FINDINGS/IMPRESSION: There is likely rotation of the acetabular component of the total hip hardware. There is also slight surrounding lucency, which may suggest underlying loosening. The femoral component of the hardware appears intact and stable. Otherwise there is no definite fracture or acute osseous abnormality.
--- NOTE | 2018-11-04 10:54 | US ---
ULTRASOUND EXAMINATION OF the left lower extremity WITH DOPPLER HISTORY: Swelling FINDINGS: Examination of the left leg was performed from the groin to the calf region. All visualized segments including common femoral, proximal greater saphenous, superficial femoral, popliteal and calf veins appear patent with good compressibility and augmentation. There is no evidence of deep vein thrombosis. IMPRESSION: No evidence of a DVT.
[2018-11-04 11:37] VITALS: BP 106/62
== END 2018-11-04 11:20 | disposition home or self-care (01) ==
LOC: MW.ED 09:16
DX: M25.552 Pain in left hip (principal); G89.29 Other chronic pain; Z96.642 Presence of left artificial hip joint; I10 Essential (primary) hypertension; F31.9 Bipolar disorder, unspecified; F17.210 Nicotine dependence, cigarettes, uncomplicated; Z88.5 Allergy status to narcotic agent; Z88.8 Allergy status to other drugs, medicaments and biological substances; Z79.82 Long term (current) use of aspirin; Z79.899 Other long term (current) drug therapy
CPT/HCPCS: 73502; 93971; 99284; J2270; J2360; J2405

== ENCOUNTER 2018-12-31 11:37 | Day surgery (SDC) | payer BC, OTHER ==
[2018-12-31] MEDS ORDERED: Iopamidol 200-M 10 ML vial ITHECAL ONE (14:30)
[2018-12-31] MEDS ORDERED: Betamethasone Acetate/Betamethasone Sod Phosphate 30 MG/5 ML MDV EPIDUR ONE (14:30)
[2018-12-31] MEDS ORDERED: Ropivacaine 0.5% 5 MG/ML 30 ML SDV INJECT ONE (14:30)
--- NOTE | 2018-12-31 23:37 | OR ---
SURGEON: Keila Veras D.O. DATE OF PROCEDURE: 12/31/2018 PRIMARY SURGEON: Keila Veras D.O. PREOPERATIVE DIAGNOSES: 1. Lumbar degenerative disk disease. 2. Lumbar spondylosis. 3. Lumbar radiculopathy. 4. Lumbar spinal stenosis. ASSISTANTS: OR staff present: 1. Marcus Lopez RN. 2. Millicent Bain RN. 3. Erendira Newberry RN. 4. RT Natividad. WOUND CLASS: I. PROCEDURE PERFORMED: 1. Caudal epidural steroid injection. 2. Fluoroscopic guidance for needle placement. 3. Local with oral Valium for sedation. SCREENING QUESTIONS: The patient answered "no" to all of the following questions: 1. Are you allergic to latex? 2. Do you have a bleeding disorder? 3. Do you have any current local or systemic infections? 4. Are you taking any anti-inflammatories or blood thinners? 5. Do you have any joint replacements, heart valve replacements, or a pacemaker? DESCRIPTION OF PROCEDURE: The patient had the procedure thoroughly explained including all possible risks, benefits and alternatives. Consent was signed in my clinic indicating understanding and willingness to proceed. The patient presented to [facility] and was escorted to the dressing room to disrobe and change into a hospital gown. Preoperative vital signs were taken and stable. The patient reported that Valium was taken prior to the procedure. The patient was brought back to the procedure room and placed in the prone position on the procedure room table. A pillow was placed under the hips in order to flatten the lumbar lordosis. The back was prepped with ChloraPrep and sterilely draped. All personnel in the operating room were dressed in appropriate attire including surgical scrubs, head and shoe covers. This was to ensure sterility while in the treatment room. During the time fluoroscopy was in use, all personnel in the operating room wore lead perez with thyroid collars. Sterile technique was used throughout the procedure. The patient was awake and conversant throughout the procedure. There was no evidence of infection at the site of needle insertion. Skeletal landmarks were identified under fluoroscopy for the lumbar epidural. Skin was anesthetized with 2% lidocaine with a sterile 27-gauge 1.5 inch needle. Then a 20-gauge Tuohy epidural needle was placed in the epidural space with loss of resistance technique under fluoroscopic guidance. No heme, cerebrospinal fluid, or paresthesias were noted. Isovue-200 contrast dye was injected in 0.2 cubic centimeter increments and seen to outline the epidural space in both AP and lateral views. There was no intravascular flow pattern observed under live fluoroscopy. Then 12 milligrams of Celestone was slowly injected after negative aspiration. The patient tolerated the procedure well. Vital signs were stable during and after the procedure. The staff escorted the patient to the recovery area and the patient was released in stable condition after a brief stay in the recovery room monitored by the nurse. The patient was given both oral and written discharge and follow up instructions with recommendation to follow up given for 2-3 weeks. The patient voiced understanding including understanding of those signs and symptoms that would require emergency care. The patient knows how to contact the office if there are any additional problems or questions in the meantime. PREOPERATIVE PAIN: 5/10. POSTOPERATIVE PAIN: 2/10. FOLLOWUP: Follow up in the Pain Clinic in 3 weeks. COLE OROPEZA /[id number]
== END 2018-12-31 14:19 | disposition home or self-care (01) ==
LOC: MW.SDS 11:37
PROVIDERS: ATTEND Anesthesiology
DX: M51.16 Intervertebral disc disorders with radiculopathy, lumbar region (principal); M47.26 Other spondylosis with radiculopathy, lumbar region; M48.061 Spinal stenosis, lumbar region without neurogenic claudication
CPT/HCPCS: 62323; J0702; J2795; Q9966

== ENCOUNTER 2019-02-02 10:36 | Day surgery (SDC) | payer MEDICAID ==
[~2019-02-02 10:36] MED LIST: Betamethasone Acetate/Betamethasone Sod Phosphate 30 MG/5 ML MDV EPIDUR ONE; Iopamidol 200-M 10 ML vial ITHECAL ONE; Lidocaine 2% 5 ML SDV INJECT ONE; Ropivacaine 0.5% 5 MG/ML 30 ML SDV INJECT ONE
--- NOTE | 2019-02-02 23:40 | OR ---
SURGEON: Keila Veras D.O. DATE OF PROCEDURE: 02/02/2019 PRIMARY SURGEON: Keila Veras D.O. NURSING ASSISTANTS TEACHER: OR staff present: 1. RT Natividad. 2. Harpal Newberry RN. 3. Millicent Harrison RN. WOUND CLASS: I. PREOPERATIVE DIAGNOSES: 1. Right hip pain. 2. Osteoarthritis, right hip. POSTOPERATIVE DIAGNOSES: 1. Right hip pain. 2. Osteoarthritis, right hip. PROCEDURE PERFORMED: 1. Intraarticular hip injection on the right. 2. Fluoroscopic guidance for needle placement. 3. Local with oral valium for sedation. SCREENING QUESTIONS: The patient answered "No" to all the following questions: 1. Are you allergic to iodine, Betadine, or latex? 2. Do you have a bleeding disorder? 3. Do you have any joint replacements, heart valve replacements or a pacemaker? 4. Are you allergic to anti-inflammatories? 5. Are you on any blood thinners? 6. Do you have any current local or systemic infections? DESCRIPTION OF PROCEDURE: The patient had the procedure thoroughly explained including all possible risks, benefits and alternatives. Consent was signed in my clinic indicating understanding and willingness to proceed. The patient presented to [facility] [place] and was escorted to the dressing room to disrobe and change into a hospital gown. Preoperative vital signs were taken and stable. The patient reported that Valium was taken prior to the procedure. The patient was brought to the procedure room and placed in the supine position on the procedure room table. The hip landmarks were identified for the intra- articular injection and the femoral pulse was palpated and marked. The skin was marked shelter between the femoral pulse and greater trochanter for a skin wheal. The skin was sterilely prepped with ChloraPrep and draped. All personnel in the operating room were dressed in appropriate attire including surgical scrubs, head and shoe covers. This was to ensure sterility while in the treatment room. During the time fluoroscopy was in use, all personnel in the operating room wore lead perez with thyroid collars. Sterile technique was used during the procedure. The fluoroscope was placed for the intra-articular hip injection. There were no signs of infection at the site for needle insertion. The skin was anesthetized with 2% Lidocaine with a 27-gauge 1.5 inch needle. Then using a 22-gauge 3.5 inch spinal needle, I advanced to the capsule of the hip joint, a pop was felt. Under direct fluoroscopic guidance verifying needle positioning, 0.2 cubic centimeters increments of IsoVue-200 dye was injected and shown to outline the intra-articular space. No intravascular flow pattern was observed under live fluoroscopy. After negative aspiration, a mixture of 0.5% Ropivacaine, 2% Lidocaine, and 12 milligrams of Celestone was slowly injected in small increments after negative aspiration of heme. No paresthesias were noted. The needle was cleared prior to removal from the skin and no adverse reactions were noted. The patient was then brought to the recovery room awake and in good condition by my staff. After a brief stay in the recovery room, the patient was discharged to home. Both oral and written discharge and followup instructions were given to the patient. The patient will follow up in the clinic in two to three weeks postprocedure to evaluate the efficacy. The patient verbalized understanding including understanding those signs and symptoms that would require emergency care and knows how to contact the office if there are any problems or questions in the meantime. PREOPERATIVE PAIN: 7/10. POSTOPERATIVE PAIN: 0/10. FOLLOWUP: Follow up in Pain Clinic in 3 weeks or p.r.n. COLE / JOHNNA /[id number]
== END 2019-02-02 13:41 ==
LOC: MW.SDS 10:36
PROVIDERS: ATTEND Anesthesiology
DX: M16.11 Unilateral primary osteoarthritis, right hip (principal); M51.37 Other intervertebral disc degeneration, lumbosacral region; M47.26 Other spondylosis with radiculopathy, lumbar region; M51.16 Intervertebral disc disorders with radiculopathy, lumbar region; I10 Essential (primary) hypertension; F31.9 Bipolar disorder, unspecified; F17.210 Nicotine dependence, cigarettes, uncomplicated; Z88.5 Allergy status to narcotic agent; Z88.8 Allergy status to other drugs, medicaments and biological substances; Z79.899 Other long term (current) drug therapy; Z79.82 Long term (current) use of aspirin
CPT/HCPCS: 20610; J0702